=== PATIENT | male | born 1980 | race American Indian/Alaskan Native ===

== ENCOUNTER 2017-02-26 10:13 | Emergency (ER) | payer SELFPAY ==
[2017-02-26 10:46] VITALS: BP 156/108
--- NOTE | 2017-02-26 11:28 | XRay Report ---
Right hand 3 views. History: Pain adjacent to fifth metacarpal. Findings: There are no fractures or other bony abnormalities. There is soft tissue swelling adjacent to the fifth metacarpal. Impression: Soft tissue swelling no other significant findings.
[2017-02-26] MEDS ORDERED: TORADOL IM ONE (15:00)
--- NOTE | 2017-02-26 16:37 | Emergency Department Report ---
Entered by SIM TRINH, acting as scribe for ADEN WILCOX PA. Upper Extremity - HPI Chief Complaint: Extremity Injury, Upper Stated Complaint: RIGHT HAND INJURY/SWOLLEN Time Seen by Provider: 02/26/17 14:10 Upper Extremity: Right Hand (left hand pain and swelling) Occurred When: 1 Day Mechanism: Fall Severity: severe (9/10) Symptoms: Yes Pain with Movement (RT hand), Yes Limited Range of Movement (RT hand), Yes Swelling (dorsal aspect of RT hand), No Deformity, No Numbness, No Weakness, No Laceration or Abrasion Other History: 36 y/o male with no significant PMHx presents to the ED c/o right hand pain that began 1 day ago. Patient states he stumbled going down the stairs, and caught himself with his right hand subsequently injuring it. Rates pain a 9/10 in severity, which he describes as aching in quality. Aggravated with movement and alleviated with rest. Associated symptom includes right hand swelling, but he denies numbness and tingling. NKDA. ED Review of Systems ROS: Stated complaint: RIGHT HAND INJURY/SWOLLEN Other details as noted in HPI Comment: All other systems reviewed and negative Constitutional: denies: chills, fever Eyes: denies: eye pain, eye discharge, vision change ENT: denies: ear pain, throat pain Respiratory: denies: cough, shortness of breath, wheezing Cardiovascular: denies: chest pain, palpitations Endocrine: no symptoms reported Gastrointestinal: denies: abdominal pain, nausea, vomiting, diarrhea Genitourinary: denies: urgency, dysuria Musculoskeletal: joint swelling (RT hand), arthralgia (RT hand pain). denies: back pain, myalgia Skin: denies: rash, lesions Neurological: denies: headache, weakness, paresthesias Psychiatric: denies: anxiety, depression ED Past Medical Hx - Past Medical History Previous Medical History?: No - Surgical History Past Surgical History?: Yes Additional Surgical History: acl sgy - Family History Family history: no significant - Social History Smoking Status: Current Some Day Smoker Substance Use Type: Alcohol - Medications Home Medications: Home Medications Medication Instructions Recorded Confirmed Last Taken Type Acetaminophen/Codeine [Tylenol 1 tab PO Q6H PRN #12 tab 02/26/17 Unknown Rx /Codeine # 3 tab] Ibuprofen [Motrin] 600 mg PO Q8H PRN #15 tablet 02/26/17 Unknown Rx Upper Extremity Exam - Exam General: Vital signs noted. General: well nourished, well developed, 36 year old male in no acute distress and nontoxic in appearance Head and Torso: Yes Chest/Lungs Abnormality (Clear to auscultation bilaterally. No wheezes, rhonchi, or rales noted. No accessory muscle use. No increased work of breathing. S1-S2, regular rate, regular rhythm. No murmurs.), No HEENT Abnormality (Normal Inspection.), No Neck Tenderness (Supple. FROM. Nontender to palpation. No adenopathy), No Abdominal Tenderness (Soft, non-distended in all quadrants), No Back Tenderness (Normal inspection. FROM. No vertebral tenderness.) Shoulder Exam: Yes Normal Range of Motion in Shoulder, No Shoulder Tenderness, No Clavicle Tenderness, No Shoulder Deformity, No AC Joint Tenderness Arm Exam: No Arm/Humerus Tenderness, No Arm Deformity Elbow: Yes Normal Range of Motion in Elbow, No Elbow Tenderness, No Elbow Deformity Forearm: No Forearm Tenderness, No Forearm Deformity, No Pain with Pronation, No Pain with Supination Wrist: Yes Normal ROM in Wrist (full flexion and extension to RT wrist with no pain), No Wrist Tenderness, No Wrist Deformity, No Snuffbox Tenderness, No Pain with Axial Thumb Compression Hand: Yes Hand Tenderness (RT dorsal aspect tender to palpation with moderate swelling and limited ROM; hand rod filler weaker to RT hand than LT hand; RT hand pain with supination, but not pronation), Yes Normal ROM in Digit(s) (painful flexion to digits on RT hand; swelling present to dorsal aspect of 2nd-5th digits on right hand ), No Hand Deformity, No Digit Tenderness, No Digit(s) Deformity (swelling present to dorsal aspect of 2nd-5th digits on right hand ), No Tendon Dysfunction CMS Exam: Yes Normal Distal Pulses (2+ radial pulses inbounding), Yes Normal Capillary Refill, Yes Normal Distal Sensation, No Broken Skin ED Course Vital Signs 02/26/17 10:43 Temperature 98.3 F Pulse Rate 65 Respiratory 16 Rate Blood Pressure 156/108 O2 Sat by Pulse 100 Oximetry - Reevaluation(s) Reevaluation #1: 02/26/17 16:10 Velcro thumb spica. Normal Neurovascular check after splint placed. Toradol 60 mg im for pain. BP manually 150/100. Patient denies any history of high blood pressure 02/26/17 16:11 - Orthopedic Splinting/Casting Injury #1 Side: right Upper Extremity Injury Location: wrist, hand Upper Extremity Immobilizer: thumb spica Additional Comments: with normal neurovascular check status post splint placement ED Medical Decision Making - Radiology Data Radiology results: report reviewed report left hand reveals soft tissue swelling without any fracture or dislocation. Patient instructed to follow up with orthopedic doctor in a couple days when swelling goes down for repeat x-ray. - Medical Decision Making ED course: Patient status post accidental trip and fall down steps with injury to right hand. Complaining of swelling and pain and very painful to move. He has no injury to his receiving the flex and extend his right wrist without any difficulties. Patient has no head injury. Normal neck and back exam. No neurovascular deficit noted. Patient with significant swelling to right dorsal aspect of hand. He is able to flex and extend his fingers but reports pain with flex and fingers. No signs of tendon damage from physical findings. X- ray report revealed no acute fracture dislocation but soft tissue swelling noted. This was communicated to patient and he voiced understanding of diagnosis and treatment plan. Note for thumb spica splint. Patient would elevated blood pressure of 156/108 and he denies having high blood pressure. Manual blood pressure still elevated but better. I instructed patient that he will need to follow up with primary care physician and he needs to keep a log of his blood pressure while he is waiting for appointment and take log to appointment for primary care physician to evaluate his blood pressure. Patient does not have a primary care physician so I instructed him that I'll refer him to [facility] to call tomorrow to schedule an appointment. Certainly him that he needs to follow-up with orthopedic doctor to refer to discharge instruction paperwork for details. Diagnostics: The radiology section for x-ray of right hand Procedure: Right thumb spica. Assessment/plan 1. Accidental fall 2. Contusion right hand 3. Arthralgia right hand 4. Elevated blood pressure with out history of hypertension Follow-up at [facility] call tomorrow to schedule an appointment for blood pressure monitoring. Follow up with orthopedic doctor for management of contusion to right hand. Given prescription for Tylenol 3, Motrin PRN Critical care attestation.: If time is entered above; I have spent that time in minutes in the direct care of this critically ill patient, excluding procedure time. ED Disposition Clinical Impression: Arthralgia of right hand Accidental fall on or from stairs or steps Qualifiers: Encounter type: initial encounter Qualified Code(s): W10.8XXA - Fall (on) (from ) other stairs and steps, initial encounter Contusion of right hand Qualifiers: Encounter type: initial encounter Qualified Code(s): S60.221A - Contusion of right hand, initial encounter Disposition: - TO HOME OR SELFCARE Is pt being admited?: No Does the pt Need Aspirin: No Condition: Stable Instructions: Arthralgia (ED), Contusion in Adults (ED), Hypertension (ED), Low Sodium Diet (ED), DASH Eating Plan (ED) Additional Instructions: please call orthopedic doctor to schedule an appointment for follow-up visit in 2 days. Your blood pressure was elevated today so please keep a log a few blood pressure on a daily basis record and evaluation Please keep thumb spica splint on until he is seen by orthopedic doctor Have significant swelling to right hand which sometimes can disguise small to minimal fracture so you'll have to follow up with orthopedic doctor after swelling goes down for repeat x-ray. If you develop, loss of sensation, movement, difference in temperature and color to your hand and finger please return to the emergency room [facility]IE Tylenol No. 3 can cause drowsiness so please do not drive or operate heavy machinery while taking this medication All discharge instruction and RICE protocol Prescriptions: Acetaminophen/Codeine [Tylenol /Codeine # 3 tab] 1 tab PO Q6H PRN #12 tab PRN Reason: Pain Ibuprofen [Motrin] 600 mg PO Q8H PRN #15 tablet PRN Reason: Pain Referrals: ANT DEAN MD [Staff Physician] - 02/28/17 [facility] [Outside] - 03/04/17 Forms: Work/School Release Form(ED) This documentation as recorded by the GAYATHRI diallo JASMINE,accurately reflects the service I personally performed and the decisions made by me,ADEN WILCOX PA.
== END 2017-02-26 16:43 | disposition home or self-care (01) ==
LOC: ED 10:13
DX: S60.221A Contusion of right hand, initial encounter (principal); F17.200 Nicotine dependence, unspecified, uncomplicated; W10.8XXA Fall (on) (from) other stairs and steps, initial encounter; Y93.89 Activity, other specified; Y99.8 Other external cause status; Y92.89 Other specified places as the place of occurrence of the external cause
CPT/HCPCS: 29125; 73130; 96372; 99283; J1885

== ENCOUNTER 2019-09-20 22:17 | Emergency (ER) | payer SELFPAY ==
[2019-09-20 22:41] VITALS: BP 147/89
== END 2019-09-21 00:10 | disposition left against medical advice (07) ==
LOC: ED 22:17
DX: R30.9 Painful micturition, unspecified (principal); Z53.21 Procedure and treatment not carried out due to patient leaving prior to being seen by health care provider

== ENCOUNTER 2020-03-17 07:33 | Emergency (ER) | payer SELFPAY ==
[2020-03-17 07:39] VITALS: BP 177/115
[2020-03-17] MEDS ORDERED: ASPIRIN 325 MG TAB PO ONE (07:39)
[2020-03-17 08:40] LABS: Basophils % (Auto) 0.7 % (0.0-1.8); Eosinophils % (Auto) 0.9 % (0.0-4.3); Hematocrit 40.2 % (35.5-45.6); Lymphocytes # (Auto) 1.1 K/mm3 (1.2-5.4); Lymphocytes % (Auto) 39.4 % (13.4-35.0); Mean Corpuscular HGB Conc 35 % (32-34); Mean Corpuscular Volume 95 fl (84-94); Monocytes # (Auto) 0.3 K/mm3 (0.0-0.8); Platelet Count 205 K/mm3 (140-440); Red Blood Count 4.25 M/mm3 (3.65-5.03)
--- NOTE | 2020-03-17 09:00 | XRay Report ---
CHEST 1 VIEW INDICATION / CLINICAL INFORMATION: Chest Pain. COMPARISON: None available. FINDINGS: SUPPORT DEVICES: None. HEART / MEDIASTINUM: No significant abnormality. LUNGS / PLEURA: No significant pulmonary or pleural abnormality. No pneumothorax. ADDITIONAL FINDINGS: No significant additional findings. IMPRESSION: No acute pulmonary or pleural abnormality Signer Name: Haseeb Martinez MD FACR Signed: 03/17/2020 8:56 AM Workstation Name: [id number]
[2020-03-17 09:01] LABS: BUN/Creatinine Ratio 7; Blood Urea Nitrogen 6 mg/dL (9-20); Calcium 9.8 mg/dL (8.4-10.2); Hemolysis Index 20
== END 2020-03-17 08:12 | disposition left against medical advice (07) ==
LOC: ED 07:33
DX: R07.89 Other chest pain (principal); Z53.21 Procedure and treatment not carried out due to patient leaving prior to being seen by health care provider
CPT/HCPCS: 36415; 71045; 80048; 84484; 85025; 93005